=== PATIENT | female | born 1950 | race Caucasian/White ===

== ENCOUNTER 2016-12-19 09:55 | Emergency (ER) | payer MEDICARE ==
[2016-12-19 10:36] LABS: BASOPHILS 0.3 % (0-2); EOSINOPHILS 3.9 % (0-7); HEMATOCRIT 41.6 % (36.0-48.0); HEMOGLOBIN 13.5 g/dL (12-16); IMMATURE GRANULOCYTES 0.1 % (0-5); LYMPHOCYTES 19.7 % (15-50); MCHC 32.5 g/dL (31.0-37.0); MCV 101.7 fL (80.0-100.0); MONOCYTES 5.6 % (2-11); NEUTROPHILS 70.4 % (40-80); PLATELET COUNT 243 10x3/uL (130-400); RBC 4.09 10x6/uL (4.00-5.40); RDW 13.2 % (11.5-14.5); WBC 10.8 10x3/uL (4.8-10.8)
[2016-12-19 10:51] LABS: ALBUMIN 3.3 g/dL (3.4-5.0); ANION GAP 15.3 mmol/L (8-16); BILIRUBIN - TOTAL 0.6 mg/dL (0.2-1.3); POTASSIUM - SERUM 4.3 mmol/L (3.5-5.1); PROTEIN - SERUM 6.6 g/dL (6.4-8.2)
[2016-12-19 11:00] LABS: TROPONIN-I 0.033 ng/mL (0.000-0.060)
== END 2016-12-19 13:09 | disposition home or self-care (01) ==
LOC: D.ER 09:55
PROVIDERS: Emergency Medicine
DX: I50.9 Heart failure, unspecified (principal); J44.9 Chronic obstructive pulmonary disease, unspecified; E78.5 Hyperlipidemia, unspecified; E11.9 Type 2 diabetes mellitus without complications; R00.0 Tachycardia, unspecified; F17.200 Nicotine dependence, unspecified, uncomplicated

== ENCOUNTER 2017-04-21 13:10 | Inpatient (IN) | payer MEDICARE ==
[~2017-04-21] VITALS: Ht 167.6 cm; Wt 77.1 kg
--- NOTE | ~2017-04-21 | HEMODYNAMI ---
PATIENT:ZAYDA CHOUDHARY MEDICAL RECORD: [id number] : 46 [id number] [facility]# [id number] ADMISSION DATE: 04/21/17 Generatedon:04/22/201714:44 Patient name: ZAYDA CHOUDHARY Patient #: [id number] SSN : [id number] : 1950 Date of study: 04/22/2017 Page: Of Hemodynamic Procedure Report Patient Data Patient Demographics Procedure consent was obtained First Name: ZAYDA Gender: Female Last Name: FUNMI : 1950 Middle Initial: M Age: 66 year(s) Patient #: [id number] Race: SSN: [id number] Additional ID: [id number] Contact details [address]: [address] [place] [address] State: [place] City: [place] Zip code: [address] Admission Admission Data Admission Date: 04/21/2017 Admission Time: 17:26 Arrival Date: 04/21/2017 Arrival Time: 17:26 Admit Source: Other Insurance Payor: Medicare Room #: D.2115 Height (in.): 66 BSA: 1.87 (m2) Height (cm.): 167.64 BMI: 27.44 (kg/m2) Weight (lbs.): 170 Weight (kg.): 77.11 Lab Results Lab Result Date: 04/22/2017 Lab Result Time: 0:00 Biochemistry Name Units Result Min Max BUN mg/dl 30 --(----)-* 7 18 Creatinine mg/dl 1.1 --(--*-)-- 0.6 1.3 CBC Name Units Result Min Max Hemoglobin g/dl 14.8 --(-*--)-- 13.5 17.5 Procedure Procedure Types Cath Procedure Diagnostic Procedure LHC LHC w/Coronaries Miscellaneous Procedures Moderate Sedation up to 30 minutes Procedure Description Procedure Date Procedure Date: 04/22/2017 Procedure Start Time: 14:26 Procedure End Time: 14:42 Procedure Staff Name Function Jose Cobrin MD Performing Physician Vero Ledezma RT Scrub Pacheco Gates RT Scrub Alaina Lennon RN Nurse Verito Farrell RT Monitor Procedure Data Cath Procedure Fluoroscopy Diagnostic fluoroscopy Total fluoroscopy Time: 2.3 time: 2.3 min min Diagnostic fluoroscopy Total fluoroscopy dose: 403 dose: 403 mGy mGy Contrast Material Contrast Material Type Amount (ml) Isovue 300 57 Entry Location Entry Primary Successful Side Size Upsize Upsize Entry Closure Succes sful Closure Location (Fr) 1 (Fr) 2 (Fr) Remarks Device Remarks Femoral Right 5 Fr Exoseal artery Estimated blood loss: 5 ml Diagnostic catheters Device Type Used For End Catheter Placement Cordis 5Fr JL 4.0 Left Coronary Catheter (MP) Angiography Cordis 5Fr 3DRC Catheter Right Coronary (MP) Angiography Cordis 5Fr Pigtail LV Angiography Catheter (MP) Procedure Complications No complications Procedure Medications Medication Administration Route Dosage Oxygen NC 2 l/min Lidocaine 2% added to field 20 Heparin Flush Bag added to field 2 bags (1000units/500ml NS) 0.9% NaCl I.V. 100 ml/hr Versed I.V. 1 mg Fentanyl I.V. 50 mcg Versed I.V. 1 mg Fentanyl I.V. 50 mcg Hemodynamics Rest BSA: 1.87 (m2) HGB: 14.8 (g/dl) O2 Consumption: Estimated: 189.09 (ml/min) O2 Co nsumption indexed: Estimated:101.12 (ml/min/m) Heart Rate: 92 (bpm) Pressure Samples Time Site Value (mmHg) Purpose Heart Use Rate(bpm) 14:38 LV 112/1,13 Snapshot 92 14:39 AO 112/62(82) Pullback 84 14:39 LV 112/0,15 Pullback 84 Gradients Valve Time Site 1 Site 2 Mean SEP/DFP Peak To Heart Use (mmHg) (sec/min) Peak Rate (mmHg) (bpm) Aortic 14:39 LV AO 13 8 0 84 112/0,15 112/62(82) Calculations Valve P-P Mean Valve Index Valve Source Name Gradient Area Flow (cm2) Aortic 0 13 0 13 Snapshots Pre Cath Intra NCS Post Cath Vital Signs Time Heart Resp SPO2 etCO2 [id number] NIBP (mmHg) Rhythm Pain Sedation Rate (ipm) (%) (mmHg) (mmHg) Status Level (bpm) 14:13:04 91 21 99 0 0 Measuring NSR 0 (11) 10(A) , No pain 14:13:51 91 19 100 0 0 133/97(117) NSR 0 (11) 10(A) , No pain 14:18:03 88 20 99 0 0 127/91(111) NSR 0 (11) 10(A) , No pain 14:22:13 89 21 94 0 0 125/89(108) NSR 0 (11) 10(A) , No pain 14:26:25 90 14 88 0 0 111/79(96) NSR 0 (11) 9(A) , No pain 14:30:33 94 16 95 0 0 121/79(105) NSR 0 (11) 9(A) , No pain 14:34:45 93 16 96 0 0 116/76(91) NSR 0 (11) 9(A) , No pain 14:38:55 90 16 96 0 0 110/74(90) NSR 0 (11) 9(A) , No pain 14:43:05 88 17 96 0 0 109/68(87) NSR 0 (11) 10(A) , No pain Medications Time Medication Route Dose Verified Delivered Reason Notes Effe ctiveness by by 14:14:01 Oxygen NC 2 Alaina Alaina used for l/min Saji Saji meat grinder RN 14:14:19 Lidocaine 2% added 20ml Alaina Alaina used for to vial Saji Saji procedure field RN RN 14:14:29 Heparin Flush added 2 Alaina Alaina used for Bag to bags Saji Saji procedure (1000units/500ml field RN RN NS) 14:14:39 0.9% NaCl I.V. 100 Alaina Alaina used for ml/hr Saji Saji meat grinder RN 14:20:19 Fentanyl I.V. 50 Alaina Alaina for mcg Saji Saji sedation RN RN 14:20:44 Versed I.V. 1 mg Alaina Alaina for Saji Saji sedation RN RN 14:25:11 Versed I.V. 1 mg Alaina Alaina for Saji Saji sedation RN RN 14:25:22 Fentanyl I.V. 50 Alaina Foley [place] [facility] [place] Saji Lennon sedation RN shaper set up operator Log Time Note 13:40:36 Pacheco Gates RT(R) sent for patient. Start room use. 13:59:08 Informed consent obtained and on chart 13:59:13 Diagnostic Cath Status : Elective 13:59:44 Time tracking: Regular hours 13:59:49 Plan of Care:Hemodynamics will remain stable., Cardiac rhythm will remain stable., Comfort level will be maintained., Respiratory function will remain adequate., Patient/ family verbilizes understanding of procedure., Procedure tolerated without complication., Recovers from procedure without complications.. 14:00:21 Admit Source: Other 14:00:32 Arrival Date: 04/21/2017 5:26:00 PM 14:00:44 Insurance Payor : Medicare 14:01:09 Lab Result : Hemoglobin 14.8 g/dl 14:01:09 Lab Result : Creatinine 1.1 mg/dl 14:01:09 Lab Result : BUN 30 mg/dl 14:05:32 Patient received from Med II to CCL 1 Alert and oriented. Tansferred to table in Supine position. 14:05:34 Warm blankets applied, and lynne hugger turned on for patient comfort. 14:05:35 Correct patient and procedure confirmed by team. 14:05:35 ECG and BP/O2 sat monitors applied to patient. 14:11:15 Vital chart was started 14:11:17 Baseline sample Acquired. 14:11:26 Full Disclosure recording started 14:11:30 H&P Date Dictated: 04/22/2017 New H&P dictated by physician.. 14:11:35 Pre-procedure instructions explained to patient. 14:11:35 Pre-op teaching completed and patient verbalized understanding. 14:11:40 Family in waiting room. 14:11:42 Patient NPO since Midnight. 14:13:05 Is the patient allergic to Iodine/contrast media? No. 14:13:06 Was the patient premedicated? No 14:13:11 Is patient on blood thinner?Yes 14:13:13 ACC The patient was administered the following blood thiners within the last 24 hours: ACCAspirin 14:13:30 Patient diabetic? Yes. 14:13:34 If diabetic: On Metformin? No 14:13:37 Previous problem with sedation/anesthesia? No ? 14:13:56 Snore? Yes 14:13:58 Sleep apnea? No 14:14:00 Deviated septum? No 14:14:01 Oxygen 2 l/min NC was administered by Alaina Lennon RN; used for procedure; 14:14:03 Opens mouth fully? No 14:14:04 Sticks out tongue? No 14:14:08 Airway obstruction? Yes copd 14:14:11 Dentures? No ? 14:14:14 Pre procedure: right dorsailis pedis pulse 1+ Palpable, but thready & weak; easily obliterated 14:14:17 Patient pain scale 0/10 ?. 14:14:19 Lidocaine 2% 20ml vial added to field was administered by Alaina Lennon RN; used for procedure; 14:14:29 Heparin Flush Bag (1000units/500ml NS) 2 bags added to field was administered by Alaina Lennon RN; used for procedure; 14:14:32 IV patent on arrival in right hand with 0.9% NaCl at [facility]. 14:14:36 Lab results completed and on chart. 14:14:39 0.9% NaCl 100 ml/hr I.V. was administered by Alaina Lennon RN; used for procedure; 14:14:40 Right groin area was prepped with chlora-prep and draped in sterile fashion 14:14:40 Alarms reviewed by R. N. 14:14:41 Sharps counted by scrub and verified by R.N. 14:14:52 Baseline sample Acquired. 14:19:41 Physician arrived 14:19:41 --------ALL STOP TIME OUT------ 14:19:42 Final Timeout: patient, procedure, and site verified with staff and physician. All members of the team are in agreement. 14:19:44 Right groin site verified by team. 14:19:46 Physical assessment completed. ASA score P 2 - A patient with mild systemic disease as per Jose Corbin MD. 14:19:51 Sedation plan: IV Moderate Sedation Versed, Fentanyl 14:20:12 Use device set Femoral Dx 14:20:14 Acist Syringe opened to sterile field. 14:20:14 Bag Decanter opened to sterile field. 14:20:14 Medline Cath Pack opened to sterile field. 14:20:15 Terumo 5Fr [place] Sheath opened to sterile field. 14:20:15 St Segun 260cm J .035 wire opened to sterile field. 14:20:17 Acist Hand Control opened to sterile field. 14:20:17 Acist Manifold opened to sterile field. 14:20:18 Diagnostic Infinity 5Fr Multipack catheter opened to sterile field. 14:20:18 Tegaderm 4 x 4 opened to sterile field. 14:20:19 Fentanyl 50 mcg I.V. was administered by Alaina Lennon RN; for sedation; 14:20:44 Versed 1 mg I.V. was administered by Alaina Lenonn RN; for sedation; 14:21:35 Patient Height : 66 cm 14:22:06 Patient Weight : 170 kg 14:25:11 Versed 1 mg I.V. was administered by Alaina Lennon RN; for sedation; 14:25:22 Fentanyl 50 mcg I.V. was administered by Alaina Lennon RN; for sedation; 14:25:51 Procedure started. 14:26:14 Local anesthetic to right femoral artery with Lidocaine 2% by Jose Corbin MD.INITIAL ACCESS ONLY 14:26:34 A 5 Fr sheath was inserted into the Right Femoral artery 14:27:05 A Cordis 5Fr JL 4.0 Catheter (MP) was advanced over the wire and used for Left Coronary Angiography. 14:28:02 Zero performed for pressure channel P1 14:28:12 Zero performed for pressure channel P1 14:30:33 LCA angiography performed. 14:30:37 Injector settings: Ml/sec: 3, Volume: 6, 14:32:53 Catheter removed. 14:32:59 A Cordis 5Fr 3DRC Catheter (MP) was advanced over the wire and used for Right Coronary Angiography. 14:34:59 RCA angiography performed. 14:35:16 Catheter removed. 14:35:22 A Cordis 5Fr Pigtail Catheter (MP) was advanced over the wire and used for LV Angiography. 14:38:30 LV gram done using RUVALCABA 14:38:33 Injector settings: Ml/sec: 5, Volume: 15, 14:38:44 EF : 20 % 14:39:24 Cordis 5Fr Exoseal opened to sterile field. 14:40:39 Catheter removed. 14:40:55 Sheath removed intact; hemostasis achieved with Exoseal to the Right Femoral artery. 14:40:56 Procedure ended.(Physican Out) 14:41:09 Fluoroscopy time 02.30 minutes. 14:41:16 Fluoroscopy dose: 403 mGy 14:41:16 Flurop Dose total: 403 14:41:26 Contrast amount:Isovue 300 57ml. 14:41:38 Sharps counted by scrub and verified by R.N. 14:41:39 Insertion/operative site no bleeding no hematoma. 14:41:42 Post-op/insertion site Right Femoral artery dressed using a 4 x 4 and Tegaderm. 14:41:45 Post right femoral artery:stable 14:41:53 Post Procedure Pulses reassessed and unchanged 14:41:56 Post procedure rhythm: unchanged. 14:41:59 Estimated blood loss: 5 ml 14:42:02 Post procedure instruction explained to patient.Patient verbalizes understanding. 14:42:02 Patient needs reinforcement of post procedure teaching. 14:42:12 Procedure type changed to Cath procedure, Diagnostic procedure, LHC, LHC w/Coronaries, Miscellaneous Procedures, Moderate Sedation up to 30 minutes 14:42:14 Procedure and supply charges have been captured, reviewed, submitted and are correct. 14:42:18 Procedure Complication : No complications 14:42:21 Vital chart was stopped 14:42:21 See physician's report for complete and final results. 14:42:31 Report given to [facility]. 14:42:34 Patient transfered to [facility] with Stretcher. 14:42:36 Procedure ended. 14:42:36 Full Disclosure recording stopped 14:42:47 End room use (Document Last) Device Usage Item Name Manufacture Quantity Catalog Hospital Part Current Minimal Lo t# / Number Charge Number Stock Stock Serial# Code Acist Acist 1 [id number] [id number] 058147 [id number] 20 Syringe [employer] Bag Microtek 1 2002S 165845 72830 922217 5 Decanter [employer] Medline Cardinal 1 [id number] 049669 38846 605807 5 Cath Pack Testt Terumo 5Fr Terumo 1 [id number] 143007 359059 554103 [address] [place] [address] Segun 1 066879 862547 552960 081239 30 260cm J .035 wire Acist Hand Acist 1 24680 949678 886620 059601 5 Control [employer] Inc Acist Acist 1 82798 779788 569839 016775 5 SLEDVision Medical [employer] Inc Diagnostic Cardinal 1 [id number] 178159 21319 503865 30 [employer] 5Fr Multipack catheter Tegaderm 4 3M 1 1626W 051535 496294 909072 5 x 4 Cordis 5Fr Cardinal 1 586622 5 JL 4.0 Health Catheter (MP) Cordis 5Fr Cardinal 1 316752 5 3DRC Health Catheter (MP) Cordis 5Fr Cardinal 1 520069 5 Pigtail Health Catheter (MP) Cordis 5Fr Cardinal 1 EX500 119813 979131 646081 10 Panceter[employer] Signature Audit [place] Stage Time Signature Unsigned Intra-Procedure 04/22/2017 Verito Farrell 2:44:49 PM RT(R) Signatures Monitor : Verito Farrell RT Signature : Date : Time : [id number] [place] [address]
[2017-04-21 15:51] LABS: BASOPHILS 0.2 % (0-2); EOSINOPHILS 1.9 % (0-7); HEMATOCRIT 44.8 % (36.0-48.0); HEMOGLOBIN 14.8 g/dL (12-16); IMMATURE GRANULOCYTES 0.3 % (0-5); LYMPHOCYTES 17.7 % (15-50); MCH 32.7 pg (26.0-34.0); MCV 98.9 fL (80.0-100.0); MEAN PLATELET VOLUME 10.3 fL (7.4-10.4); MONOCYTES 5.9 % (2-11); PLATELET COUNT 245 10x3/uL (130-400); RBC 4.53 10x6/uL (4.00-5.40); RDW 13.5 % (11.5-14.5); WBC 13.4 10x3/uL (4.8-10.8)
[2017-04-21 16:10] LABS: ANION GAP 16.2 mmol/L (8-16); CALCIUM 9.2 mg/dL (8.5-10.1); CARBON DIOXIDE 26.7 mmol/L (21.0-32.0); CREATININE - SERUM 1.1 mg/dL (0.6-1.3); POTASSIUM - SERUM 3.9 mmol/L (3.5-5.1); TROPONIN-I 0.028 ng/mL (0.000-0.060)
--- NOTE | 2017-04-21 18:15 | NUR ---
TRANSFER FROM ER BY W/Kenzie OLMEDOINTED TO ROOM. CALL LIGHT IN REACH. WILL CONT. PLAN PF CARE.
--- NOTE | 2017-04-21 19:02 | NUR ---
RECEIVED REPORT AND ASSUMED PT CARE FROM DAY SHIFT NURSE @ THIS TIME
[2017-04-21 20:08] VITALS: BP 132/78
[2017-04-21] MEDS ORDERED: COREG 3.1253.125 MG PO (21:08)
[2017-04-21] MEDS ORDERED: TOPROL XL50 MG PO (21:08)
[2017-04-21] MEDS ORDERED: FUROSEMIDE20 MG PO (21:08)
[2017-04-21] MEDS ORDERED: BREO ELLIPTA 11 EACH INH (21:08)
[2017-04-21] MEDS ORDERED: K-TAB10 MEQ PO (21:09)
[2017-04-21] MEDS ORDERED: LIPITOR20 MG PO (21:10)
[2017-04-21] MEDS ORDERED: PRINIVIL20 MG PO (21:11)
[2017-04-21] MEDS ORDERED: GLUCOPHAGE500 MG PO (21:25)
[2017-04-21] MEDS ORDERED: BAYER CHEWABLE81 MG PO (21:25)
[2017-04-21 22:01] VITALS: BMI 27.5
[2017-04-22 01:09] VITALS: BP 125/83
[2017-04-22 04:00] VITALS: BP 136/88
--- NOTE | 2017-04-22 07:40 | NUR ---
TELEMETRY SR. CONSENTS SIGNED FOR [facility]. WILL CONT. PLAN OF CARE.
--- NOTE | 2017-04-22 07:45 | NUR ---
IV STARTED TO RIGHT FA BY LEANNE LANDRY AND FLUSHED WITH NS. LINE IS PATENT.
[2017-04-22 08:00] VITALS: BP 137/86
[2017-04-22 08:09] LABS: ANION GAP 13.6 mmol/L (8-16); CALCIUM 9.2 mg/dL (8.5-10.1); CARBON DIOXIDE 31.3 mmol/L (21.0-32.0); POTASSIUM - SERUM 3.9 mmol/L (3.5-5.1)
[2017-04-22 08:12] LABS: CREATININE - SERUM 1.5 mg/dL (0.6-1.3)
[2017-04-22 08:22] LABS: BASOPHILS 0.2 % (0-2); EOSINOPHILS 2.4 % (0-7); HEMOGLOBIN 15.5 g/dL (12-16); IMMATURE GRANULOCYTES 0.4 % (0-5); LYMPHOCYTES 15.8 % (15-50); MCH 32.7 pg (26.0-34.0); MCV 99.2 fL (80.0-100.0); MEAN PLATELET VOLUME 10.4 fL (7.4-10.4); MONOCYTES 5.5 % (2-11); NEUTROPHILS 75.7 % (40-80); PLATELET COUNT 230 10x3/uL (130-400); RBC 4.74 10x6/uL (4.00-5.40); RDW 13.2 % (11.5-14.5)
[2017-04-22 10:54] VITALS: Ht 167.6 cm; Wt 77.1 kg
[2017-04-22 12:00] VITALS: BP 152/78
--- NOTE | 2017-04-22 14:00 | NUR ---
PRE-OPS GIVEN. TO LEAD TINNER BY BED.
--- NOTE | 2017-04-22 15:06 | NUR ---
BACK FROM HOME LIGHTING ADVISER. VS WNL. RIGHT GROIN STABLE WITHOUT BLEEDING OR HEMATOMA NOTED. WILL MONITOR.
[2017-04-22 16:00] VITALS: BP 104/65
--- NOTE | 2017-04-22 17:15 | NUR ---
BED REST UP. GROIN STABLE.
[2017-04-22 19:00] VITALS: BP 111/59
--- NOTE | 2017-04-22 20:00 | NUR ---
PT RESTING IN BED WITH NO DISTRESS. NONLABORED RESPIRATIONS ON ROOM AIR. SR PER TELEMETRY. PIV TO RIGHT HAND WITH DOBUTREX AT 11.6M/HR INFUSING. SHIFT ASSESSMENT COMPLETED. CPOC.
--- NOTE | 2017-04-22 23:02 | NUR ---
RESTING WITH EYES CLOSED. NO DISTRESS. CPOC.
[2017-04-23] VITALS: BP 115/76
[2017-04-23 04:00] VITALS: BP 154/76
[2017-04-23 05:13] LABS: CALCIUM 8.9 mg/dL (8.5-10.1); CREATININE - SERUM 1.2 mg/dL (0.6-1.3)
[2017-04-23 08:29] VITALS: BP 109/75
[2017-04-23 11:35] VITALS: BP 119/70
--- NOTE | 2017-04-23 14:51 | NUR ---
TELEMETRY SR. IV PATENT. WILL CONT. PLAN OF CARE.
--- NOTE | 2017-04-23 16:17 | NUR ---
IV AND TELEMETRY DCD. DC PLANS GIVEN. UNDERSTANDING VOICED. ESCORTED TO CAR BY W/C.
--- NOTE | 2017-04-23 16:20 | NUR ---
Patient Name: ZAYDA CHOUDHARY Admission Status: ER Accout number: [id number] Admission Date: 04-21-2017 : 1950 Admission Diagnosis:SHORTNESS OF BREATH Attending: PILAR SORTO Current LOS: 2 Anticipated DC Date: 04-23-2017 Planned Disposition: Home Primary Insurance: [facility] LATE ENTRY: Discharge Planning Comments: * Is the patient Alert and Oriented? Yes 0 * How many steps to enter\exit or inside your home? RAMP 0 * PCP PERSONNEL CLERK [facility] 0 * Pharmacy [facility] IN [place] 0 * Preadmission Environment Home Alone 0 * ADLs Independent 0 * Equipment Nebulizer 0 * Other Equipment NO MEDICAL EQUIPMENT PROVIDER PREFERENCE 0 * List name and contact numbers for known caregivers / representatives who currently or will assist patient after discharge: STACY SANTILLAN, SISTER, 0 * Community resources currently utilized None 0 * Please name any agencies selected above. NONE 0 * Additional services required to return to the preadmission environment? No 0 * Can the patient safely return to the preadmission environment? Yes 0 * Has this patient been hospitalized within the prior 30 days at any hospital? No 0 CM MET WITH PT IN ROOM TO DISCUSS DISCHARGE PLANNING AND NEEDS. PT REPORTS LIVING AT HOME INDEPENDENTLY AND ALONE. PT HAS NEBULIZER AND NO MEDICAL EQUIPMENT PROVIDER PREFERENCE. PT HAS NO OUTSIDE SERVICES ASSISTING IN THE HOME. CM DISCUSSED AVAILABILITY OF HOME HEALTH, REHAB SERVICES AND MEDICAL EQUIPMENT. PT INITIALLY STATED THAT SHE IS SUPPOSED TO HAVE A WALK TEST FOR OXYGEN. CM NOTIFIED BEDSIDE NURSE WHO CHECKED PT'S OXYGEN WHICH WAS AT 98%, PT HAS BEEN OFF OF OXYGEN AND UP IN ROOM. ONLINE PUBLISHER CHECKED WITH DR. SORTO WHO DID NOT ORDER OXYGEN TESTING. PT NOTIFIED PT WHO PT DENIES DISCHARGE NEEDS, REPORTS HER SISTER IS HERE NOW TO PICK HER UP FOR DISCHARGE HOME. IMPORTANT MESSAGE FROM MEDICARE PROVIDED AND EXPLAINED. Block Mason: Usama Rivers
== END 2017-04-23 16:18 | disposition home or self-care (01) | DRG 287 ==
LOC: D.ER 13:10 → D.M2 17:26
PROVIDERS: Nurse Practitioner Acute Care; ADMIT Internal Medicine Cardiovascular Disease
PROC: B2151ZZ Fluoroscopy of Left Heart using Low Osmolar Contrast (ICD-10-PCS; 2017-04-22)
PROC: 4A023N7 Measurement of Cardiac Sampling and Pressure, Left Heart, Percutaneous Approach (ICD-10-PCS; 2017-04-22)
PROC: B2111ZZ Fluoroscopy of Multiple Coronary Arteries using Low Osmolar Contrast (ICD-10-PCS; principal; 2017-04-22 09:00)
DX: I11.0 Hypertensive heart disease with heart failure (principal); I50.21 Acute systolic (congestive) heart failure; I25.10 Atherosclerotic heart disease of native coronary artery without angina pectoris; I42.9 Cardiomyopathy, unspecified; I34.0 Nonrheumatic mitral (valve) insufficiency; J44.9 Chronic obstructive pulmonary disease, unspecified; E11.9 Type 2 diabetes mellitus without complications; Z72.0 Tobacco use

== ENCOUNTER 2017-07-25 10:35 | Emergency (ER) | payer MEDICARE ==
[2017-04-22 10:54] VITALS: BMI 27.4
[~2017-07-25 10:35] MED LIST: BAYER CHEWABLE81 MG PO; BREO ELLIPTA 11 EACH INH; COREG 3.1253.125 MG PO; FUROSEMIDE20 MG PO; GLUCOPHAGE500 MG PO; K-TAB10 MEQ PO; LIPITOR20 MG PO; PRINIVIL20 MG PO; TOPROL XL50 MG PO
[2017-07-25 11:08] LABS: HEMATOCRIT 42.6 % (36.0-48.0); HEMOGLOBIN 14.3 g/dL (12-16); LYMPHOCYTES 16.4 % (15-50); MCH 32.7 pg (26.0-34.0); MCHC 33.6 g/dL (31.0-37.0); MCV 97.5 fL (80.0-100.0); NEUTROPHILS 76.9 % (40-80); PLATELET COUNT 200 10x3/uL (130-400); RBC 4.37 10x6/uL (4.00-5.40); RDW 13.9 % (11.5-14.5); WBC 8.3 10x3/uL (4.8-10.8)
[2017-07-25 11:26] LABS: ALBUMIN 3.1 g/dL (3.4-5.0); BILIRUBIN - TOTAL 0.7 mg/dL (0.2-1.3); CALCIUM 8.8 mg/dL (8.5-10.1); CARBON DIOXIDE 27.5 mmol/L (21.0-32.0); CREATININE - SERUM 1.3 mg/dL (0.6-1.3); POTASSIUM - SERUM 3.5 mmol/L (3.5-5.1); PROTEIN - SERUM 6.6 g/dL (6.4-8.2)
[2017-07-25 12:18] LABS: APPEARANCE CLEAR (CLEAR); BACTERIA FEW /hpf (NONE SEEN); BILIRUBIN NEGATIVE (NEGATIVE); COLOR YELLOW (YELLOW); EPITHELIAL CELLS 0-5 /hpf (0-5); GLUCOSE NEGATIVE (NEGATIVE); HYALINE CAST 0-5 /lpf (NONE SEEN); KETONE NEGATIVE (NEGATIVE); MUCUS <1+ /lpf (NONE SEEN); NITRITE NEGATIVE (NEGATIVE); PROTEIN 1+ mg/dL (NEGATIVE); RED CELLS - URINE 0-5 /hpf (0-5); SPECIFIC GRAVITY 1.015 (1.005-1.020); UROBILINOGEN NORMAL (NORMAL); WHITE CELLS - URINE 0-5 /hpf (0-5)
== END 2017-07-25 14:12 | disposition home or self-care (01) ==
LOC: D.ER 10:35
PROVIDERS: Physician Assistant Medical
DX: I50.9 Heart failure, unspecified (principal); J44.9 Chronic obstructive pulmonary disease, unspecified; E11.9 Type 2 diabetes mellitus without complications; F17.200 Nicotine dependence, unspecified, uncomplicated

== ENCOUNTER 2017-07-28 10:23 | Emergency (ER) | payer MEDICARE ==
[2017-04-22 10:54] VITALS: BMI 27.4
[2017-07-28 11:14] LABS: BASOPHILS 0.2 % (0-2); EOSINOPHILS 1.4 % (0-7); HEMATOCRIT 42.3 % (36.0-48.0); HEMOGLOBIN 13.8 g/dL (12-16); IMMATURE GRANULOCYTES 0.1 % (0-5); MCH 32.7 pg (26.0-34.0); MCHC 32.6 g/dL (31.0-37.0); MCV 100.2 fL (80.0-100.0); MEAN PLATELET VOLUME 10.5 fL (7.4-10.4); MONOCYTES 4.7 % (2-11); NEUTROPHILS 77.6 % (40-80); PLATELET COUNT 194 10x3/uL (130-400); RBC 4.22 10x6/uL (4.00-5.40); RDW 13.9 % (11.5-14.5); WBC 8.1 10x3/uL (4.8-10.8)
[2017-07-28 11:44] LABS: ANION GAP 11.9 mmol/L (8-16); BILIRUBIN - TOTAL 0.72 mg/dL (0.2-1.3); CALCIUM 8.6 mg/dL (8.5-10.1); CARBON DIOXIDE 26.6 mmol/L (21.0-32.0); CREATININE - SERUM 1.2 mg/dL (0.6-1.3); POTASSIUM - SERUM 3.5 mmol/L (3.5-5.1); PROTEIN - SERUM 6.3 g/dL (6.4-8.2)
== END 2017-07-28 13:14 | disposition home or self-care (01) ==
LOC: D.ER 10:23
PROVIDERS: Emergency Medicine
DX: R06.00 Dyspnea, unspecified (principal); I50.9 Heart failure, unspecified; E11.9 Type 2 diabetes mellitus without complications; J44.9 Chronic obstructive pulmonary disease, unspecified; F17.200 Nicotine dependence, unspecified, uncomplicated

== ENCOUNTER 2017-08-15 12:13 | Emergency (ER) | payer MEDICARE ==
[2017-04-22 10:54] VITALS: BMI 27.4
[2017-08-15 12:54] LABS: BASOPHILS 0.5 % (0-2); EOSINOPHILS 2.4 % (0-7); HEMATOCRIT 44.3 % (36.0-48.0); HEMOGLOBIN 14.4 g/dL (12-16); IMMATURE GRANULOCYTES 0.1 % (0-5); MCH 32.7 pg (26.0-34.0); MCHC 32.5 g/dL (31.0-37.0); MCV 100.5 fL (80.0-100.0); MEAN PLATELET VOLUME 10.8 fL (7.4-10.4); MONOCYTES 8.1 % (2-11); NEUTROPHILS 71.9 % (40-80); PLATELET COUNT 188 10x3/uL (130-400); RBC 4.41 10x6/uL (4.00-5.40); RDW 12.9 % (11.5-14.5); WBC 7.9 10x3/uL (4.8-10.8)
[2017-08-15 13:14] LABS: ALBUMIN 2.7 g/dL (3.4-5.0); ALKALINE PHOSPHATASE 113 U/L (46-116); ALT (SGPT) 35 U/L (10-68); CALC OSMOLALITY 295 mosm/kg (275-300); CALCIUM 8.7 mg/dL (8.5-10.1); CARBON DIOXIDE 28.9 mmol/L (21.0-32.0); CHLORIDE - SERUM 103 mmol/L (98-107); CREATININE - SERUM 1.3 mg/dL (0.6-1.3); POTASSIUM - SERUM 3.8 mmol/L (3.5-5.1); SODIUM 140 mmol/L (136-145); UREA NITROGEN 27 mg/dL (7-18); eGFR NON AFRICAN AMERICAN 43 mL/min (90-120)
[2017-08-15 13:21] LABS: GLUCOSE 317 mg/dL (74-106)
[2017-08-15 13:25] LABS: CKMB 1.3 U/L (0.0-3.6); CREATINE KINASE 57 UL (21-215); PRO BNP 7245 pg/mL (0-125); TROPONIN-I 0.029 ng/mL (0.000-0.060)
== END 2017-08-15 14:04 | disposition home or self-care (01) ==
LOC: D.ER 12:13
PROVIDERS: Family Medicine
DX: I50.9 Heart failure, unspecified (principal); J44.9 Chronic obstructive pulmonary disease, unspecified; E11.9 Type 2 diabetes mellitus without complications